=== PATIENT | male | born 1970 ===

== ENCOUNTER 2020-10-03 05:53 | Day surgery (SDC) | payer OTHER ==
[2020-10-03] MEDS ORDERED: NEURONTIN300 MG PO (08:35)
[2020-10-03] MEDS ORDERED: KETO10TA2 PO (08:35)
[2020-10-03] MEDS ORDERED: PERCOCET 5-3251 EACH PO (08:35)
[2020-10-03] MEDS ORDERED: DERMOPLAST PAIN78 GM TOP (08:36)
== END 2020-10-03 14:25 | disposition home or self-care (01) ==
LOC: CIR.AMB 05:53
PROVIDERS: ATTEND Surgery
DX: K64.8 Other hemorrhoids (principal); Z20.822 Contact with and (suspected) exposure to COVID-19